=== PATIENT | female | born 1950 | race African-American/Black ===

== ENCOUNTER 2022-03-18 05:42 | Observation (INO) ==
[2022-03-18] MEDS ORDERED: NITROGLYCERIN 2% OINT 1 INCH/GM PACK TOP STA (06:38)
[2022-03-18] MEDS ORDERED: ASPIRIN 325 MG TABLET PO STA (06:38)
[2022-03-18 07:11] LABS: Basophils % 0.6 % (0.0-0.8); Eosinophils # 0.3 10*3/uL (0.0-0.87); Eosinophils % 4.7 % (0.00-10.9); Hematocrit 36.3 VOL% (35.7-47.0); Hemoglobin 11.4 GM/DL (12.0-16.0); Immature Granulocytes % 0.2 %; Immature Granulocytes Absolute 0.01 #; Lymphocytes # 1.6 10*3/uL (1.4-4.0); Lymphocytes % 30.3 % (21.3-54.2); Mean Corpuscular HGB Conc 31.4 GM/DL (32-36); Mean Corpuscular Volume 87.3 FL (87-102); Mean Platelet Volume 12.3 FL (9.6-12.0); Monocytes # 0.6 10*3/uL (0.11-0.8); Monocytes % 10.6 % (1.7-12.7); Neutrophils % 53.6 % (38.7-73.9); Platelet Count 179 T/CUMM (130-400); Red Blood Count 4.16 MC/CUMM (3.8-5.5); Red Cell Distribution Width 13.9 % (9.3-17.3); White Blood Count 5.3 T/CUMM (4-12)
[2022-03-18 07:36] LABS: Alanine Aminotransferase 16 U/L (13-56); Albumin 3.4 G/DL (3.4-5.0); Alkaline Phosphatase 106 U/L (45-117); Aspartate Amino Transferase 13 U/L (0-37); Bilirubin,Total < 0.39 MG/DL (0.20-1.00); Blood Urea Nitrogen 25 MG/DL (7-18); Calcium 10.1 MG/DL (8.5-10.1); Carbon Dioxide 24 MMOL/L (21-32); Chloride 112 MMOL/L (98-107); Cholesterol 178 MG/DL (50-200); Glucose 95 MG/DL (74-106); HDL Cholesterol 47 MG/DL (40-60); Potassium 4.1 MMOL/L (3.5-5.1); Risk Ratio 3.79; Sodium 143 MMOL/L (136-145); Total Protein 6.8 G/DL (6.4-8.2); Triglycerides 104 MG/DL (2-150); VLDL Cholesterol 20.8 MG/DL
[2022-03-18 07:49] LABS: INR 0.9; PT Patient Result 10.3 SECS (10.5-12.0); Partial Thromboplastin Time 21.8 SECS (23.8-32.1)
[2022-03-18 08:05] LABS: Bacteria,Urine Occasional /HPF (Few); Bilirubin,Urine Negative (Negative); Blood, Urine Negative (Negative); Glucose,Urine (UA) Negative (Negative); Ketones,Urine Negative (Negative); Mucus,Urine Occasional /LPF (Occasional); Nitrite,Urine Negative (Negative); Protein,Urine Negative (Negative); RBC,Urine 2 /HPF (0-4); Squamous Epithelial Cell,Urine Occasional /HPF (0-10); Urine Appearance Clear (Clear); Urine Color Yellow (Yellow); Urine Specific Gravity 1.015 (1.001-1.035); Urine Urobilinogen 0.2 eU/dL (<2.0)
[2022-03-18 08:11] LABS: Barbiturates Screen,Urine Negative (Negative); Benzodiazepines Screen,Urine Negative (Negative); Cannabinoid Screen,Urine Negative (Negative); Opiate Screen,Urine Negative (Negative); Phencyclidine Screen,Urine Negative (Negative)
[2022-03-18] MEDS ORDERED: GLUCAGON 1 MG VIAL IM PRN (09:15)
[2022-03-18] MEDS ORDERED: DOCUSATE SODIUM 100 MG CAPSULE PO PRN (09:15)
[2022-03-18] MEDS ORDERED: SIMETHICONE CHEW 125 MG TABLET PO PRN (09:15)
[2022-03-18] MEDS ORDERED: ONDANSETRON 4 MG/2 ML VIAL IV PRN (09:15)
[2022-03-18] MEDS ORDERED: hydrALAZINE 20 MG/1 ML VIAL IV PRN (09:15)
[2022-03-18] MEDS ORDERED: DEXTROSE 10% 250 ML BAG IV PRN (09:15)
[2022-03-18] MEDS ORDERED: LACTATED RINGERS 1,000 ML IV SCH (09:30)
[2022-03-18] MEDS ORDERED: NITROGLYCERIN SL 0.4 MG TABLET SL PRN (11:07)
[2022-03-18] MEDS ORDERED: ALPRAZolam 0.5 MG TABLET PO PRN (11:07)
[2022-03-18] MEDS ORDERED: KETOROLAC 30 MG/1 ML VIAL IV ONE (11:40)
[2022-03-18] MEDS: LACTATED RINGERS 1,000 ML IV SCH ×2 (11:45→20:48)
[2022-03-18] MEDS: INSULIN LISPRO 100 UNIT/ML SUBCUT SCH ×3 (11:51→20:49)
[2022-03-18] MEDS: ENOXAPARIN 40 MG/0.4 ML SYRINGE SUBCUT SCH (11:52)
[2022-03-18] MEDS: ACETAMINOPHEN 325 MG TABLET PO PRN ×2 (14:30→18:14)
[2022-03-18] MEDS: MORPHINE 2 MG/1 ML SYRINGE IV PRN (20:23)
[2022-03-18] MEDS ORDERED: SIMVASTATIN 20 MG TABLET PO SCH (21:00)
[2022-03-19] MEDS: MORPHINE 2 MG/1 ML SYRINGE IV PRN (00:33)
[2022-03-19] MEDS: LACTATED RINGERS 1,000 ML IV SCH ×2 (01:49→05:48)
[2022-03-19 05:30] LABS: Basophils % 0.8 % (0.0-0.8); Eosinophils # 0.3 10*3/uL (0.0-0.87); Eosinophils % 5.5 % (0.00-10.9); Hematocrit 36.7 VOL% (35.7-47.0); Hemoglobin 11.5 GM/DL (12.0-16.0); Lymphocytes % 39.7 % (21.3-54.2); Mean Corpuscular HGB Conc 31.3 GM/DL (32-36); Mean Corpuscular Volume 86.4 FL (87-102); Mean Platelet Volume 12.6 FL (9.6-12.0); Monocytes # 0.5 10*3/uL (0.11-0.8); Monocytes % 10.4 % (1.7-12.7); Neutrophils % 43.6 % (38.7-73.9); Platelet Count 185 T/CUMM (130-400); Red Blood Count 4.25 MC/CUMM (3.8-5.5); White Blood Count 4.9 T/CUMM (4-12)
[2022-03-19 05:49] LABS: Albumin 3.1 G/DL (3.4-5.0); Bilirubin,Total 0.4 MG/DL (0.20-1.00); Calcium 10.1 MG/DL (8.5-10.1); Osmolality,Calculated 287.8 MOS/KG (273-304); Potassium 3.8 MMOL/L (3.5-5.1); VLDL Cholesterol 23.4 MG/DL
[2022-03-19] MEDS: INSULIN LISPRO 100 UNIT/ML SUBCUT SCH (07:45)
[2022-03-19] MEDS: ENOXAPARIN 40 MG/0.4 ML SYRINGE SUBCUT SCH ×2 (08:25→08:32)
[2022-03-19 08:37] VITALS: BP 178/90
[2022-03-19] MEDS ORDERED: PANTOPRAZOLE 40 MG TABLET PO SCH (09:00)
[2022-03-19] MEDS ORDERED: MELOXICAM 7.5 MG TABLET PO SCH (09:00)
[2022-03-19] MEDS ORDERED: amLODIPine 5 MG TABLET PO SCH (09:00)
[2022-03-19] MEDS ORDERED: LOSARTAN 50 MG TABLET PO SCH (09:00)
[2022-03-19] MEDS ORDERED: ASPIRIN 325 MG TABLET PO SCH (09:00)
[2022-03-19] MEDS ORDERED: KETOROLAC 30 MG/1 ML VIAL IV ONE (09:31)
== END 2022-03-19 10:45 | disposition home or self-care (01) ==
LOC: N.ED 05:42 → N.EDINP 05:42 → N.TELES 15:41
PROVIDERS: ADMIT Internal Medicine; ATTEND Internal Medicine